=== PATIENT | male | born 2005 | race Caucasian/White ===

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

== ENCOUNTER → 2023-03-31 | Outpatient (CLI) | payer OTHER | LOC: CPPFTMAIN 10:03 | PROVIDERS: ATTEND Internal Medicine | DX: R06.4 Hyperventilation (principal) | CPT/HCPCS: 94060; 94726; 94729 ==

== ENCOUNTER → 2023-04-01 | Outpatient (CLI) | payer OTHER ==
--- NOTE | 2023-04-01 14:34 | US ---
EXAMINATION TYPE: US liver DATE OF EXAM:04/01/2023 COMPARISON: None CLINICAL INDICATION: Male, 17 years old with history of R74.01 ELEVATION OF LEVELS OF LIVER TRANSAMIN ASE L; TECHNIQUE: Multiple sonographic images of the right upper quadrant are obtained. FINDINGS: EXAM MEASUREMENTS: Liver Length: 19.3 cm Gallbladder Wall: 0.2 cm CBD: 0.4 cm Right Kidney: 11.3 x 4.4 x 5.2 cm STARS SPECIALIST NOTES:some exam limitations due to overlying bowel gas Pancreas: Pancreatic tail is obscured by bowel gas shadowing. Most of the head and body is visualize d and shows no gross abnormality. Liver: upper limits in size, attenuating, heterogeneous. No focal lesion. Gallbladder: wnl Evidence for sonographic Coulter's sign: no CBD: wnl Right Kidney: wnl IMPRESSION: 1. Mild hepatomegaly at 19.3 cm. Slight heterogeneous appearance could reflect nonspecific hepatocell ular disease. 2. No gallstones or biliary ductal dilatation.
== END | disposition home or self-care (01) ==
LOC: RADUSWWP 09:22
PROVIDERS: ATTEND Internal Medicine
DX: R16.0 Hepatomegaly, not elsewhere classified (principal); R74.01 Elevation of levels of liver transaminase levels
CPT/HCPCS: 76705